=== PATIENT | male | born 1955 | race American Indian/Alaskan Native ===

== ENCOUNTER 2016-11-04 18:39 | Observation (INO) | payer SELFPAY ==
--- NOTE | 2016-11-04 19:47 | C.PDOC ---
History Of Present Illness Patient is a 61 y/o male brought to the ER via BLS for acute alcohol intoxication. Otherwise, patient denies any trauma, injury, or any physical complaints at this time. Time Seen by Provider: 11/04/16 19:47 Chief Complaint (Nursing): Substance Abuse History Per: Patient History/Exam Limitations: intoxication Onset/Duration Of Symptoms: Gradual Current Symptoms Are (Timing): Still Present Suicide/Self Injury Attempted (Context): None Modifying Factor(s): Alcohol Severity: None Pain Scale Rating Of: 0 Involuntary Hold By: None Recent travel outside of the [place]: No Additional History Per: Patient Past Medical History Reviewed: Historical Data, Nursing Documentation, Vital Signs Vital Signs: Last Vital Signs Temp 98.6 F 11/05/16 06:17 Pulse 91 H 11/05/16 06:17 Resp 20 11/05/16 06:17 BP 135/68 11/05/16 06:17 Pulse Ox 98 11/06/16 00:30 - Medical History PMH: Denies: Diabetes, Hepatitis, HIV, HTN, Seizures, Sexually Transmitted Disease - [facility] Procedures ALCOHOL DETOXIFICATION (07/29/13) Family History: States: No Known Family Hx - Social History Hx Tobacco Use: No Hx Alcohol Use: Yes Hx Substance Use: No - Immunization History Hx Tetanus Toxoid Vaccination: No Hx Influenza Vaccination: No Hx Pneumococcal Vaccination: No Review Of Systems Constitutional: Negative for: Fever, Chills Cardiovascular: Negative for: Chest Pain, Palpitations Respiratory: Negative for: Shortness of Breath Gastrointestinal: Negative for: Nausea, Vomiting, Abdominal Pain Psych: Negative for: Suicidal ideation Physical Exam - Physical Exam Appears: Non-toxic, No Acute Distress, Other (EtOH on breath) Skin: Warm, Dry Head: Atraumatic, Normacephalic Eye(s): bilateral: EOMI Neck: Supple Chest: Symmetrical Cardiovascular: Rhythm Regular Respiratory: No Rales, No Rhonchi, No Wheezing Gastrointestinal/Abdominal: Soft, No Tenderness Extremity: Normal ROM Neurological/Psych: Oriented x3, Normal Speech ED Course And Treatment - Laboratory Results Result Diagrams: 11/04/16 20:36 11/04/16 20:36 O2 Sat by Pulse Oximetry: 98 (on RA) Pulse Ox Interpretation: Normal Progress Note: On reassessment, patient is resting comfortably in bed, with no acute distress. Denies any physical complaints. Reevaluation Time: :23 Reassessment Condition: Improved ED OBSERVATION Discharge: Yes Date of observation admission: 11/04/16 Time of observation admission: 19:48 - Observation admission statement Patient is being placed in observation because:: acute alcohol intoxication - Goals of Observation Goals of observation are:: sobriety - Progress Note Progress Note: 11/04/16 19:48 vitals stable,no complaints 11/04/16 21:49 vitals stable 11/04/16 23:49 no complaints 11/05/16 01:46 vitals stable 11/05/16 03:50 arousable, no complaints Disposition Counseled Patient/Family Regarding: Studies Performed, Diagnosis, Need For Followup - Disposition Disposition: HOME/ ROUTINE Disposition Time: 19:47 Condition: FAIR - Clinical Impression Clinical Impression: Alcohol intoxication - Scribe Statement The provider has reviewed the documentation as recorded by the Mya Seals Provider Attestation: All medical record entries made by the Mya were at my direction and personally dictated by me. I have reviewed the chart and agree that the record accurately reflects my personal performance of the history, physical exam, medical decision making, and the department course for this patient. I have also personally directed, reviewed, and agree with the discharge instructions and disposition. Decision To Admit - . Patient Diagnosis: Alcohol intoxication
[2016-11-04 20:41] LABS: BASO # 0.1 K/uL (0.0-0.2); BASO % 1.6 % (0.0-2.0); EOS # 0.3 K/uL (0.0-0.7); EOS % 6.1 % (0.0-4.0); HEMATOCRIT 38.5 % (35.0-51.0); LYMPH # 1.5 K/uL (1.0-4.3); LYMPH % 30.7 % (20.0-40.0); MEAN CELL VOLUME 90.2 fL (80.0-94.0); MEAN CORPUSCULAR HEMOGLOBIN 30.6 pg (27.0-31.0); MEAN CORPUSCULAR HGB CONC 33.9 g/dL (33.0-37.0); MEAN PLATELET VOLUME 8.5 fL (7.2-11.7); MONO # 0.6 K/uL (0.0-0.8); RED CELL DISTRIBUTION WIDTH 13.5 % (11.5-14.5)
[2016-11-04 20:45] LABS: URINE BILIRUBIN NEGATIVE (NEGATIVE); URINE BLOOD NEGATIVE (NEGATIVE); URINE COLOR Colorless (YELLOW); URINE GLUCOSE (UA) NORMAL (Normal); URINE KETONE NEGATIVE (NEGATIVE); URINE LEUKOCYTE ESTERASE NEG Leu/uL (Negative); URINE PROTEIN NEGATIVE (NEGATIVE); URINE UROBILINOGEN NORMAL mg/dL (0.2-1.0)
[2016-11-04 20:50] LABS: CHLORIDE 100 mmol/L (98-107)
[2016-11-04 20:51] LABS: POTASSIUM 5.6 mmol/L (3.6-5.2); SODIUM 134 mmol/L (132-148)
[2016-11-04 20:53] LABS: ALB/GLOB RATIO 1.1 (1.0-2.1); ALKALINE PHOSPHATASE 62 U/L (38-126); AST/SGOT 124 U/L (17-59); BILIRUBIN,TOTAL 0.9 mg/dL (0.2-1.3); BLOOD UREA NITROGEN 12 mg/dL (9-20); CARBON DIOXIDE 21 mmol/L (22-30); GFR AFRICAN-AMERICAN > 60; TOTAL PROTEIN 8.1 g/dL (6.3-8.3)
[2016-11-04 20:54] LABS: ALT/SGPT 61 U/L (21-72); CALCIUM 8.4 mg/dl (8.6-10.4); GLUCOSE,RANDOM 85 mg/dL (75-110)
[2016-11-04 21:05] LABS: ALCOHOL SERUM 329 mg/dl (0-10)
[2016-11-05 00:08] VITALS: RESP 20
[2016-11-05] MEDS ORDERED: Sodium Chloride 0.9% 1,000 ML IV ONE (00:34)
[2016-11-05 06:17] VITALS: BP 135/68; PULSE 91; TEMP 98.6
[2016-11-06 00:30] VITALS: O2SAT 98
== END 2016-11-05 05:24 | disposition home or self-care (01) ==
LOC: C.ER 18:39 → C.9OBSV 19:47
PROVIDERS: ADMIT Emergency Medicine; ATTEND Emergency Medicine
DX: F10.129 Alcohol abuse with intoxication, unspecified (principal)
CPT/HCPCS: 80053; 81001; 82948; 85025; 96360; 99285; G0378; G0480

== ENCOUNTER 2016-11-29 00:41 | Observation (INO) | payer SELFPAY ==
--- NOTE | 2016-11-29 00:57 | C.PDOC ---
Time Seen by Provider: 11/29/16 00:57 Chief Complaint (Nursing): Male Genitourinary Past Medical History Reviewed: Historical Data, Nursing Documentation, Vital Signs Vital Signs: Last Vital Signs Temp 97.6 F 11/29/16 00:51 Pulse 85 11/29/16 00:51 Resp 20 11/29/16 00:51 BP 129/81 11/29/16 00:51 Pulse Ox 98 11/29/16 00:57 - Medical History PMH: Denies: Diabetes, Hepatitis, HIV, HTN, Seizures, Sexually Transmitted Disease - [facility] Procedures ALCOHOL DETOXIFICATION (07/29/13) Family History: States: No Known Family Hx - Social History Hx Tobacco Use: No Hx Alcohol Use: Yes Hx Substance Use: No - Immunization History Hx Tetanus Toxoid Vaccination: No Hx Influenza Vaccination: No Hx Pneumococcal Vaccination: No ED Course And Treatment O2 Sat by Pulse Oximetry: 98 Disposition Counseled Patient/Family Regarding: Studies Performed, Diagnosis - Disposition Disposition Time: 00:57
[2016-11-29] MEDS ORDERED: Sodium Chloride 0.9% 1,000 ML IV ONE (00:58)
--- NOTE | 2016-11-29 01:04 | C.PDOC ---
History Of Present Illness pt presents with right flank pain, some dysuria worsening since am. no f/c/n/c. Dull aching discomfort. Pt has also been drinking heavily, as usual Time Seen by Provider: 11/29/16 00:57 Chief Complaint (Nursing): Male Genitourinary History Per: Patient History/Exam Limitations: no limitations Onset/Duration Of Symptoms: Days Current Symptoms Are (Timing): Still Present Context: Other Severity: Moderate Pain Scale Rating Of: 4 Location Of Pain/Discomfort: Other (r flank, back pain) Radiation Of Pain To:: Back Quality Of Discomfort: Dull, Aching Associated Symptoms: denies: Fever, Chills, Nausea Exacerbating Factors: None Alleviating Factors: None Last Bowel Movement: Yesterday Recent travel outside of the [place]: No Additional History Per: Patient Past Medical History Reviewed: Historical Data, Nursing Documentation, Vital Signs Vital Signs: Last Vital Signs Temp 98.0 F 11/29/16 06:18 Pulse 78 11/29/16 06:18 Resp 18 11/29/16 06:18 BP 150/82 11/29/16 06:18 Pulse Ox 98 11/29/16 06:55 - Medical History PMH: Denies: Diabetes, Hepatitis, HIV, HTN, Seizures, Sexually Transmitted Disease - [facility] Procedures ALCOHOL DETOXIFICATION (07/29/13) Family History: States: No Known Family Hx - Social History Hx Tobacco Use: No Hx Alcohol Use: Yes Hx Substance Use: No - Immunization History Hx Tetanus Toxoid Vaccination: No Hx Influenza Vaccination: No Hx Pneumococcal Vaccination: No Review Of Systems Constitutional: Negative for: Fever, Chills Eyes: Negative for: Vision Change ENT: Negative for: Throat Pain Cardiovascular: Negative for: Chest Pain Respiratory: Negative for: Shortness of Breath Gastrointestinal: Positive for: Abdominal Pain. Negative for: Nausea, Vomiting Genitourinary: Negative for: Dysuria Musculoskeletal: Positive for: Back Pain Skin: Negative for: Rash, Lesions Neurological: Negative for: Weakness Psych: Negative for: Anxiety Physical Exam - Physical Exam Appears: Non-toxic Skin: Warm, Dry Oral Mucosa: Moist Teeth: Other (poor dentition) Neck: Trachea Midline, Supple Chest: Symmetrical Cardiovascular: Rhythm Regular Respiratory: No Rales, No Rhonchi, No Wheezing Gastrointestinal/Abdominal: Bowel Sounds (tympanic to percussion), Soft, Tenderness (r flank), No Distention, No Guarding, No Rebound Back: CVA Tenderness (r) Male Genital: No Testicular Tenderness, No Inguinal Tenderness, No Inguinal Swelling Extremity: Normal ROM Extremity: Bilateral: Atraumatic Neurological/Psych: Oriented x3, Normal Speech, Normal Cognition Gait: Steady ED Course And Treatment - Laboratory Results Result Diagrams: 11/29/16 01:14 11/29/16 01:14 O2 Sat by Pulse Oximetry: 98 Pulse Ox Interpretation: Normal Progress Note: blood work , ivf, toradol, ct scan ED OBSERVATION Discharge: Yes Date of observation admission: 11/29/16 Time of observation admission: 03:25 - Observation admission statement Patient is being placed in observation because:: acute alcohol intoxication - Goals of Observation Goals of observation are:: sobriety - Progress Note Progress Note: 11/29/16 03:25 vitals stable 11/29/16 05:29 no complaints Disposition Counseled Patient/Family Regarding: Studies Performed, Diagnosis, Need For Followup - Disposition Disposition: HOME/ ROUTINE Disposition Time: 01:01 Condition: FAIR - Clinical Impression Clinical Impression: Alcohol intoxication
[2016-11-29 01:17] LABS: BASO # 0.1 K/uL (0.0-0.2); BASO % 1.7 % (0.0-2.0); EOS # 0.3 K/uL (0.0-0.7); EOS % 6.6 % (0.0-4.0); HEMATOCRIT 43.5 % (35.0-51.0); LYMPH # 1.8 K/uL (1.0-4.3); LYMPH % 36.1 % (20.0-40.0); MEAN CELL VOLUME 90.5 fL (80.0-94.0); MEAN CORPUSCULAR HEMOGLOBIN 30.5 pg (27.0-31.0); MEAN CORPUSCULAR HGB CONC 33.7 g/dL (33.0-37.0); MEAN PLATELET VOLUME 8.3 fL (7.2-11.7); MONO # 0.3 K/uL (0.0-0.8); RED CELL DISTRIBUTION WIDTH 13.4 % (11.5-14.5); WHITE BLOOD COUNT 4.9 K/uL (4.8-10.8)
[2016-11-29] MEDS ORDERED: Sodium Chloride 0.9% 1,000 ML ONE (01:17)
[2016-11-29 01:22] LABS: URINE BILIRUBIN NEGATIVE (NEGATIVE); URINE BLOOD 1+ (NEGATIVE); URINE COLOR Straw (YELLOW); URINE GLUCOSE (UA) NORMAL (Normal); URINE KETONE NEGATIVE (NEGATIVE); URINE LEUKOCYTE ESTERASE NEG Leu/uL (Negative); URINE PROTEIN NEGATIVE (NEGATIVE); URINE UROBILINOGEN NORMAL mg/dL (0.2-1.0); WBC URINE < 1 /hpf (0-5)
[2016-11-29 01:28] LABS: CHLORIDE 105 mmol/L (98-107); INR 0.9; SODIUM 143 mmol/L (132-148)
[2016-11-29 01:29] LABS: GFR AFRICAN-AMERICAN > 60
[2016-11-29 01:30] LABS: ALB/GLOB RATIO 1.3 (1.0-2.1); ALKALINE PHOSPHATASE 78 U/L (38-126); ALT/SGPT 55 U/L (21-72); AST/SGOT 108 U/L (17-59); BILIRUBIN,TOTAL 0.7 mg/dL (0.2-1.3); BLOOD UREA NITROGEN 9 mg/dL (9-20); CALCIUM 8.5 mg/dl (8.6-10.4); CARBON DIOXIDE 27 mmol/L (22-30); GLUCOSE,RANDOM 86 mg/dL (75-110)
[2016-11-29 01:43] LABS: ALCOHOL SERUM 340 mg/dl (0-10)
[2016-11-29 06:19] VITALS: BP 150/82; PULSE 78; RESP 18; TEMP 98
[2016-11-29 06:55] VITALS: O2SAT 98
== END 2016-11-29 06:56 | disposition home or self-care (01) ==
LOC: C.ER 00:41 → C.9OBSV 03:24
PROVIDERS: ADMIT Emergency Medicine; ATTEND Emergency Medicine
DX: F10.120 Alcohol abuse with intoxication, uncomplicated (principal); Y90.8 Blood alcohol level of 240 mg/100 ml or more
CPT/HCPCS: 80053; 81001; 83690; 85025; 85610; 85730; 96361; 96374; 96375; 99284; G0378; G0480; J1885; J7040

== ENCOUNTER 2016-12-28 20:45 | Emergency (ER) | payer SELFPAY ==
[2016-12-28 20:51] VITALS: TEMP 98.8; O2SAT 97
--- NOTE | 2016-12-28 20:56 | C.PDOC ---
History Of Present Illness A 61 y/o M brought in by EMS for ETOH intoxication and wanting pain meds for his chronic back pain. Denies fever, chills, N/V/D, weakness, numbness, suicidal or homicidal ideation, or any other complaints. Time Seen by Provider: 12/28/16 20:55 Chief Complaint (Nursing): Back Pain History Per: Patient History/Exam Limitations: no limitations Onset/Duration Of Symptoms: Hrs Current Symptoms Are (Timing): Still Present Quality Of Discomfort: "Pain" Severity: Mild Previous Symptoms: Back Pain, Chronic Pain Associated Symptoms: denies: New Weakness, New Numbness Recent travel outside of the [place]: No Additional History Per: Patient Past Medical History Reviewed: Historical Data, Nursing Documentation, Vital Signs Vital Signs: Last Vital Signs Temp 98.8 F 12/28/16 21:20 Pulse 88 12/28/16 21:20 Resp 16 12/28/16 21:20 BP 136/84 12/28/16 21:20 Pulse Ox 97 12/28/16 23:01 - Medical History PMH: Denies: Diabetes, Hepatitis, HIV, HTN, Seizures, Sexually Transmitted Disease - [facility] Procedures ALCOHOL DETOXIFICATION (07/29/13) Family History: States: Unknown Family Hx - Social History Hx Tobacco Use: No Hx Alcohol Use: Yes Hx Substance Use: No - Immunization History Hx Tetanus Toxoid Vaccination: No Hx Influenza Vaccination: No Hx Pneumococcal Vaccination: No Review Of Systems Except As Marked, All Systems Reviewed And Found Negative. Constitutional: Positive for: Other (ETOH intoxication). Negative for: Fever, Chills Gastrointestinal: Negative for: Nausea, Vomiting, Diarrhea Musculoskeletal: Positive for: Back Pain (Lower ) Neurological: Negative for: Weakness, Numbness Psych: Negative for: Suicidal ideation, Other (Homicidal ideation) Physical Exam - Physical Exam Appears: Non-toxic, No Acute Distress, Other (ETOH intoxication, (+) AOB) Skin: Warm, Dry Head: Atraumatic, Normacephalic Eye(s): bilateral: Normal Inspection Cardiovascular: Rhythm Regular Respiratory: Normal Breath Sounds, No Rales, No Rhonchi, No Wheezing Back: Normal Inspection, No CVA Tenderness, No Vertebral Tenderness, No Paraspinal Tenderness Neurological/Psych: Oriented x3, Other (No focal deficit) Gait: With Assistance (Cane) ED Course And Treatment O2 Sat by Pulse Oximetry: 97 (RA) Pulse Ox Interpretation: Normal Medical Decision Making Medical Decision Making: Impression: A 61 y/o M brought in by EMS for ETOH intoxication and wanting pain meds for his chronic back pain. homeless, alcoholic, malingering, no new back issues. Pt denies pain meds Disposition Doctor Will See Patient In The: Office Counseled Patient/Family Regarding: Studies Performed, Diagnosis - Disposition Referrals: Alcoholics Anonymous [Outside] [facility] [Outside] [facility] [Outside] Non [facility] Provider, [Primary Care Provider] - Disposition: HOME/ ROUTINE Disposition Time: 20:55 Condition: GOOD Additional Instructions: tylenol or Motrin for your chronic back pain issues Follow-up in our outpatient clinic as needed. Seek help to stop alcohol abuse. Instructions: Abuse of Alcohol (ED), Chronic Back Pain (ED) - Clinical Impression Clinical Impression: Low back pain, Alcohol abuse - Scribe Statement The provider has reviewed the documentation as recorded by the Scribe Homar parrish All medical record entries made by the Johnibbarbara were at my direction and personally dictated by me. I have reviewed the chart and agree that the record accurately reflects my personal performance of the history, physical exam, medical decision making, and the department course for this patient. I have also personally directed, reviewed, and agree with the discharge instructions and disposition.
[2016-12-28 21:21] VITALS: BP 136/84; PULSE 88; RESP 16
== END 2016-12-28 21:22 | disposition home or self-care (01) ==
LOC: SUPCPDRO 20:45 → C.ER 20:45
DX: M54.5 Low back pain (principal); F10.10 Alcohol abuse, uncomplicated; Y90.9 Presence of alcohol in blood, level not specified

== ENCOUNTER 2017-04-23 14:21 | Emergency (ER) | payer SELFPAY ==
[2017-04-23 14:57] VITALS: RESP 18
--- NOTE | 2017-04-23 15:12 | C.PDOC ---
History Of Present Illness 61 year old male, with history of alcohol abuse, brought to ED via EMS for acute alcohol intoxication. Pt admits drinking alcohol today. Otherwise, denies SI, HI, or physical complaints at this time. Time Seen by Provider: 04/23/17 14:48 Chief Complaint (Nursing): Substance Abuse History Per: Patient, EMS History/Exam Limitations: intoxication Current Symptoms Are (Timing): Still Present Suicide/Self Injury Attempted (Context): None Modifying Factor(s): Alcohol Severity: Mild Associated Symptoms: denies: Suicidal Thoughts, Suicidal Plan Involuntary Hold By: None Additional History Per: EMS Past Medical History Reviewed: Historical Data, Nursing Documentation, Vital Signs Vital Signs: Last Vital Signs Temp 98.1 F 04/23/17 18:30 Pulse 78 04/23/17 18:30 Resp 18 04/23/17 18:30 BP 106/70 04/23/17 18:30 Pulse Ox 100 04/23/17 18:30 - [facility] Procedures ALCOHOL DETOXIFICATION (07/29/13) Family History: States: No Known Family Hx - Social History Hx Tobacco Use: No Hx Alcohol Use: Yes Hx Substance Use: No - Immunization History Hx Tetanus Toxoid Vaccination: No Hx Influenza Vaccination: No Hx Pneumococcal Vaccination: No Review Of Systems Except As Marked, All Systems Reviewed And Found Negative. Constitutional: Negative for: Fever, Chills Cardiovascular: Negative for: Chest Pain, Palpitations Respiratory: Negative for: Shortness of Breath Gastrointestinal: Negative for: Nausea, Vomiting, Abdominal Pain Neurological: Negative for: Headache, Dizziness Psych: Positive for: Other (alcohol intoxication). Negative for: Suicidal ideation Physical Exam - Physical Exam Appears: Well, Non-toxic, No Acute Distress, Other (appears intoxicated) Skin: Normal Color, Warm, Dry, No Rash Head: Atraumatic, Normacephalic, No Swelling, No Abrasion, No Laceration Eye(s): bilateral: Normal Inspection Oral Mucosa: Moist, Other (EtOH on breath) Neck: Normal ROM, No Midline Cervical Tenderness, No Paracervical Tenderness, No Step Off Deformity, Supple Cardiovascular: Rhythm Regular Respiratory: Normal Breath Sounds, No Rales, No Rhonchi, No Wheezing Gastrointestinal/Abdominal: Normal Exam, Bowel Sounds, Soft, No Tenderness Extremity: Normal ROM, No Deformity Extremity: Bilateral: Atraumatic, Normal ROM Neurological/Psych: Other (awake, alert, intoxicated, moving all 4 extremities spontaneously) ED Course And Treatment O2 Sat by Pulse Oximetry: 99 (RA) Pulse Ox Interpretation: Normal Progress Note: Patient pending sobriety. Reevaluation Time: 18:30 Reassessment Condition: Improved (Patient is currently AAOx3 and ambulating normally in ED. He is clinically sober at this time, will discharge.) Disposition Counseled Patient/Family Regarding: Diagnosis, Need For Followup - Disposition Referrals: [facility] [Outside] Disposition: HOME/ ROUTINE Disposition Time: 18:30 Condition: STABLE Instructions: Alcohol Intoxication (ED) Forms: [facility] (Irish), General Discharge Instructions Print Language: HONG KONGER - Clinical Impression Clinical Impression: Alcohol intoxication - Scribe Statement The provider has reviewed the documentation as recorded by the Scribe Jane Seals All medical record entries made by the Scribe were at my direction and personally dictated by me. I have reviewed the chart and agree that the record accurately reflects my personal performance of the history, physical exam, medical decision making, and the department course for this patient. I have also personally directed, reviewed, and agree with the discharge instructions and disposition.
[2017-04-23 18:31] VITALS: BP 106/70; PULSE 78; TEMP 98.1
[2017-04-24 18:10] VITALS: O2SAT 99
== END 2017-04-23 18:30 | disposition home or self-care (01) ==
LOC: C.ER 14:21
DX: F10.129 Alcohol abuse with intoxication, unspecified (principal)

== ENCOUNTER 2017-06-01 01:06 | Emergency (ER) | payer SELFPAY ==
--- NOTE | 2017-06-01 01:34 | C.PDOC ---
History Of Present Illness The patient is brought to the ED by EMS for evaluation after he was found publicly intoxicated prior to arrival. Patient was found sitting on the street and requested to come to this ED for evaluation. He admits to drinking earlier today and has no physical complaints at this time. Time Seen by Provider: 06/01/17 01:34 Chief Complaint (Nursing): Substance Abuse History Per: Patient, EMS History/Exam Limitations: intoxication Onset/Duration Of Symptoms: Unknown Current Symptoms Are (Timing): Still Present Suicide/Self Injury Attempted (Context): None Modifying Factor(s): Alcohol Severity: None Pain Scale Rating Of: 0 Associated Symptoms: denies: Suicidal Thoughts, Suicidal Plan Involuntary Hold By: None Recent travel outside of the [place]: No Additional History Per: Patient Past Medical History Reviewed: Historical Data, Nursing Documentation, Vital Signs Vital Signs: Last Vital Signs Temp 97.8 F 06/01/17 04:28 Pulse 69 06/01/17 04:28 Resp 17 06/01/17 04:28 BP 141/76 06/01/17 04:28 Pulse Ox 98 06/01/17 04:28 - Medical History PMH: No Chronic Diseases Denies: Diabetes, Hepatitis, HIV, HTN, Seizures, Sexually Transmitted Disease Surgical History: No Surg Hx - [facility] Procedures ALCOHOL DETOXIFICATION (07/29/13) Family History: States: Unknown Family Hx - Social History Hx Tobacco Use: No Hx Alcohol Use: Yes Hx Substance Use: No - Immunization History Hx Tetanus Toxoid Vaccination: No Hx Influenza Vaccination: No Hx Pneumococcal Vaccination: No Review Of Systems Constitutional: Negative for: Fever, Chills Cardiovascular: Negative for: Chest Pain, Palpitations Respiratory: Negative for: Cough, Shortness of Breath Gastrointestinal: Negative for: Nausea, Vomiting, Abdominal Pain Genitourinary: Negative for: Dysuria, Hematuria Skin: Negative for: Rash, Lesions, Jaundice, Bruising Psych: Positive for: Other (EtOH intoxication ). Negative for: Suicidal ideation Physical Exam - Physical Exam Appears: No Acute Distress, Other (visibly intoxicated) Skin: Normal Color, Warm, Dry Head: Normacephalic Oral Mucosa: Moist, Other (alcohol on breath ) Neck: Supple Chest: Symmetrical, No Deformity, No Tenderness Cardiovascular: Rhythm Regular, No Murmur Respiratory: No Rales, No Rhonchi, No Wheezing Extremity: Normal ROM Neurological/Psych: Other (arousable to touch and verbal stimuli ) Gait: Unsteady ED Course And Treatment O2 Sat by Pulse Oximetry: 100 (on RA) Pulse Ox Interpretation: Normal Reevaluation Time: 05:30 Reassessment Condition: Improved Disposition Counseled Patient/Family Regarding: Studies Performed, Diagnosis, Need For Followup - Disposition Referrals: [facility] [Outside] Disposition: HOME/ ROUTINE Disposition Time: 01:34 Condition: FAIR Instructions: Alcohol Intoxication (DC) Forms: [employer] (Vietnamese) - Clinical Impression Clinical Impression: Alcohol abuse, Alcohol intoxication - Scribe Statement The provider has reviewed the documentation as recorded by the Scribe (Mica Seals) Provider Attestation: All medical record entries made by the Scribe were at my direction and personally dictated by me. I have reviewed the chart and agree that the record accurately reflects my personal performance of the history, physical exam, medical decision making, and the department course for this patient. I have also personally directed, reviewed, and agree with the discharge instructions and disposition.
[2017-06-01 05:30] VITALS: O2SAT 100
[2017-06-01 05:46] VITALS: BP 139/81; PULSE 77; RESP 20; TEMP 98.1
== END 2017-06-01 05:47 | disposition home or self-care (01) ==
LOC: SUPCPDRO 01:06 → C.ER 01:06
DX: F10.129 Alcohol abuse with intoxication, unspecified (principal); Y90.9 Presence of alcohol in blood, level not specified

== ENCOUNTER 2017-06-03 16:49 | Emergency (ER) | payer SELFPAY ==
--- NOTE | 2017-06-03 19:31 | C.PDOC ---
History Of Present Illness Pt was BIBEMS due to public alcohol intoxication. Time Seen by Provider: 06/03/17 17:08 Chief Complaint (Nursing): Substance Abuse History Per: Patient, EMS History/Exam Limitations: intoxication Onset/Duration Of Symptoms: Unknown Current Symptoms Are (Timing): Still Present Suicide/Self Injury Attempted (Context): None Modifying Factor(s): Alcohol Severity: Moderate Associated Symptoms: denies: Suicidal Thoughts, Suicidal Plan Additional History Per: Prior Records Past Medical History Reviewed: Historical Data, Nursing Documentation, Vital Signs Vital Signs: Last Vital Signs Temp 98.4 F 06/03/17 22:18 Pulse 86 06/03/17 22:18 Resp 16 06/03/17 22:18 BP 114/79 06/03/17 22:18 Pulse Ox 97 06/03/17 22:18 - Medical History Other PMH: Alcohol abuse - [facility] Procedures ALCOHOL DETOXIFICATION (07/29/13) Family History: States: Unknown Family Hx - Social History Hx Tobacco Use: No Hx Alcohol Use: Yes Hx Substance Use: No - Immunization History Hx Tetanus Toxoid Vaccination: No Hx Influenza Vaccination: No Hx Pneumococcal Vaccination: No Review Of Systems Review Of Systems: ROS cannot be obtained secondary to pt's inabilty to answer questions. Physical Exam - Physical Exam Appears: No Acute Distress, Other (AOB, intoxicated) Skin: Normal Color, Warm, Dry Head: Atraumatic Eye(s): bilateral: PERRL Neck: Normal ROM, No Midline Cervical Tenderness, No Step Off Deformity, Supple Cardiovascular: Rhythm Regular Respiratory: Normal Breath Sounds, No Accessory Muscle Use Gastrointestinal/Abdominal: Soft Extremity: Normal ROM, No Deformity Neurological/Psych: Slow To Respond With Command, Other (Moving all extremities) Gait: Unable To Assess ED Course And Treatment O2 Sat by Pulse Oximetry: 97 Pulse Ox Interpretation: Normal Disposition - Disposition Disposition Time: 00:36 Condition: STABLE - Clinical Impression Clinical Impression: Alcohol abuse Physician Patient Turnover Patient Signed Over To: Saritha Sandoval Handoff Comments: to reassess/dispo pt once sober in AM.
[2017-06-03 22:19] VITALS: TEMP 98.4
[2017-06-04 01:56] VITALS: BP 111/76; PULSE 118; RESP 21; O2SAT 96
== END 2017-06-04 06:50 | disposition home or self-care (01) ==
LOC: C.ER 16:49
DX: F10.10 Alcohol abuse, uncomplicated (principal); Y90.9 Presence of alcohol in blood, level not specified

== ENCOUNTER 2017-06-10 22:26 | Emergency (ER) | payer SELFPAY ==
--- NOTE | 2017-06-10 22:38 | C.PDOC ---
History Of Present Illness <Aleks Ott - Last Filed: 06/11/17 06:32> <Lori Bernal - Last Filed: 06/12/17 17:45> 61yo male, brought to ED by EMS for evaluation after he fell on the street. Patient disheveled, confused and unable to provide history of present illness. ( Aleks Ott) - HPI History Per: EMS History/Exam Limitations: intoxication <Aleks Ott - Last Filed: 06/11/17 06:32> <Lori Bernal - Last Filed: 06/12/17 17:45> - HPI Time Seen by Provider: 06/10/17 22:29 Chief Complaint (Nursing): Trauma Past Medical History Reviewed: Historical Data, Nursing Documentation, Vital Signs - Medical History PMH: Denies: HIV, HTN, Seizures, Sexually Transmitted Disease Family History: States: Unknown Family Hx - Social History Hx Tobacco Use: No Hx Alcohol Use: Yes Hx Substance Use: No - Immunization History Hx Tetanus Toxoid Vaccination: No Hx Influenza Vaccination: No Hx Pneumococcal Vaccination: No <Aleks Ott - Last Filed: 06/11/17 06:32> Vital Signs: Last Vital Signs Temp 98.1 F 06/10/17 22:51 Pulse 105 H 06/11/17 13:55 Resp 18 06/11/17 13:55 BP 150/90 06/11/17 13:55 Pulse Ox 97 06/11/17 13:55 - [facility] Procedures ALCOHOL DETOXIFICATION (07/29/13) Review Of Systems Psych: Positive for: Other (intoxicated, disheveled) <Aleks Ott - Last Filed: 06/11/17 06:32> Physical Exam - Physical Exam Head: Abrasion (left supraorbital ridge with superficial abrasion, tenderness and swelling) Nose: Tenderness (nasal bridge with superficial abrasion, tender to touch. swelling noted as well.) Oral Mucosa: Moist, Other (alcohol on breath) Neck: Supple Gait: Unsteady <Aleks Ott - Last Filed: 06/11/17 06:32> ED Course And Treatment - Laboratory Results Result Diagrams: 06/10/17 22:57 06/10/17 22:57 Reevaluation Time: 05:45 (clinically intoxicated) Reassessment Condition: Unchanged <Aleks Ott - Last Filed: 06/11/17 06:32> - Laboratory Results Result Diagrams: 06/10/17 22:57 06/10/17 22:57 <Lori Bernal - Last Filed: 06/12/17 17:45> Medical Decision Making <Aleks Ott - Last Filed: 06/11/17 06:32> <Lori Bernal - Last Filed: 06/12/17 17:45> Medical Decision Making: Time: 8 CT Head FINDINGS: Brain: There is dilatation of sulci gyri and ventricles. There is no midline shift. There is decreased attenuation in periventricular white matter. There are no focal masses. There are no focal hemorrhages. There is an age-indeterminate lacunar infarct in the left basal ganglia. De-white differentiation is visualized. Ventricles: See above Bones: Cranial vault is intact. Soft tissues: There is left frontal scalp swelling. There are multiple cutaneous calcifications. Sinuses: There is mucoperiosteal thickening in the ethmoid and left maxillary sinuses. Ears and mastoids: Middle ears and mastoids are unremarkable. Orbits: There are no acute orbital abnormalities. IMPRESSION: Small left frontal scalp hematoma, no acute intracranial hemorrhage Time: 0632 Patient to be signed out to Dr. Bernal pending clinical sobriety and disposition. (Aleks Ott) Disposition <Aleks Ott - Last Filed: 06/11/17 06:32> Counseled Patient/Family Regarding: Studies Performed, Diagnosis, Need For Followup - Disposition Disposition Time: 14:00 <Lori Bernal - Last Filed: 06/12/17 17:45> - Disposition Referrals: [facility] [Outside] Disposition: HOME/ ROUTINE Condition: STABLE Additional Instructions: FOLLOW UP WITH YOUR DOCTOR IN 1-2 DAYS RETURN TO ER IF YOU HAVE ANY CONCERNING SYMPTOMS Instructions: Alcohol Intoxication (ED) Forms: [employer] (British) Print Language: KISWAHILI - Clinical Impression Clinical Impression: Alcohol intoxication, Head injury Critical Care Time - Scribe Statement The provider has reviewed the documentation as recorded by the Scribe <Aleks Ott - Last Filed: 06/11/17 06:32> <Lori Bernal - Last Filed: 06/12/17 17:45> - Scribe Statement Gina Lamar (Aleks Ott) Provider Attestation: All medical record entries made by the Scribe were at my direction and personally dictated by me. I have reviewed the chart and agree that the record accurately reflects my personal performance of the history, physical exam, medical decision making, and the department course for this patient. I have also personally directed, reviewed, and agree with the discharge instructions and disposition. (Aleks Ott) Addendum <Aleks Ott - Last Filed: 06/11/17 06:32> <Lori Bernal - Last Filed: 06/12/17 17:45> Addendum: 06/11/17 9:00 Patient sleeping on stretcher comfortably, arousable to verbal stimuli. Pending sobriety. 06/11/17 13:56 Patient currently AAOx3, ambulating normally in the ED. Patient is clinically sober, will discharge. (Lori Bernal)
[2017-06-10 22:52] VITALS: RESP 18; TEMP 98.1
[2017-06-10 23:00] LABS: BASO # 0.1 K/uL (0.0-0.2); BASO % 1.3 % (0.0-2.0); EOS # 0.4 K/uL (0.0-0.7); HEMATOCRIT 37.8 % (35.0-51.0); LYMPH # 2.1 K/uL (1.0-4.3); LYMPH % 37.6 % (20.0-40.0); MEAN CORPUSCULAR HEMOGLOBIN 31.6 pg (27.0-31.0); MEAN PLATELET VOLUME 8.9 fL (7.2-11.7); MONO # 0.6 K/uL (0.0-0.8); MONO % 11.2 % (0.0-10.0); RED CELL DISTRIBUTION WIDTH 13.1 % (11.5-14.5); WHITE BLOOD COUNT 5.5 K/uL (4.8-10.8)
[2017-06-10 23:02] LABS: MEAN CELL VOLUME 92.8 fL (80.0-94.0)
[2017-06-10 23:12] LABS: ALB/GLOB RATIO 1.3 (1.0-2.1); ALKALINE PHOSPHATASE 85 U/L (38-126); ALT/SGPT 59 U/L (21-72); AST/SGOT 81 U/L (17-59); BILIRUBIN,TOTAL 0.4 mg/dL (0.2-1.3); BLOOD UREA NITROGEN 12 mg/dL (9-20); CALCIUM 8.2 mg/dl (8.6-10.4); CARBON DIOXIDE 25 mmol/L (22-30); CHLORIDE 108 mmol/L (98-107); GFR AFRICAN-AMERICAN > 60; GLUCOSE,RANDOM 97 mg/dL (75-110); POTASSIUM 3.7 mmol/L (3.6-5.2); SODIUM 142 mmol/L (132-148); TOTAL PROTEIN 7.3 g/dL (6.3-8.3)
[2017-06-10 23:28] LABS: ALCOHOL SERUM 413 mg/dl (0-10)
--- NOTE | 2017-06-10 23:55 | CT ---
EXAM: CT Head Without Intravenous Contrast EXAM DATE/TIME: 06/10/2017 10:39 PM CLINICAL HISTORY: 61 years old, male; Pain; Headache; Patient HX: 06-13-17; Additional info: Trauma TECHNIQUE: Axial computed tomography images of the head/brain without intravenous contrast. All CT scans at this facility use one or more dose reduction techniques, viz.: automated exposure control; ma/kV adjustment per patient size (including targeted exams where dose is matched to indication; i.e. head); or iterative reconstruction technique. COMPARISON: CT - HEAD W/O CONTRAST 2013-07-28 20:15 FINDINGS: Brain: There is dilatation of sulci gyri and ventricles. There is no midline shift. There is decreased attenuation in periventricular white matter. There are no focal masses. There are no focal hemorrhages. There is an age-indeterminate lacunar infarct in the left basal ganglia. De-white differentiation is visualized. Ventricles: See above Bones: Cranial vault is intact. Soft tissues: There is left frontal scalp swelling. There are multiple cutaneous calcifications. Sinuses: There is mucoperiosteal thickening in the ethmoid and left maxillary sinuses. Ears and mastoids: Middle ears and mastoids are unremarkable. Orbits: There are no acute orbital abnormalities. IMPRESSION: Small left frontal scalp hematoma, no acute intracranial hemorrhage
[2017-06-11 08:52] VITALS: O2SAT 97
[2017-06-11 13:59] VITALS: BP 150/90; PULSE 105
== END 2017-06-11 14:05 | disposition home or self-care (01) ==
LOC: C.ER 22:26
DX: S00.212A Abrasion of left eyelid and periocular area, initial encounter (principal); S00.31XA Abrasion of nose, initial encounter; W18.30XA Fall on same level, unspecified, initial encounter; F10.129 Alcohol abuse with intoxication, unspecified; Y90.8 Blood alcohol level of 240 mg/100 ml or more
CPT/HCPCS: 70450; 80053; 82948; 85025; 99285; G0480

== ENCOUNTER 2017-06-13 22:25 | Emergency (ER) | payer SELFPAY ==
[2017-06-13 22:50] VITALS: PULSE 98; TEMP 98.4; O2SAT 98
--- NOTE | 2017-06-14 | C.PDOC ---
History Of Present Illness Patient is a 61 y/o male who presents to the ED with a complaint of upper back pain for the last 3 days. Patient notes falling approximately 3 days ago, but is unsure if it was related to the pain. Requested sandwich on arrival. No other physical complaints at this time. Time Seen by Provider: 06/13/17 23:01 Chief Complaint (Nursing): Back Pain History Per: Patient History/Exam Limitations: no limitations Onset/Duration Of Symptoms: Days (3 days ago) Current Symptoms Are (Timing): Still Present Recent travel outside of the [place]: No Past Medical History Reviewed: Historical Data, Nursing Documentation, Vital Signs Vital Signs: Last Vital Signs Temp 98.4 F 06/13/17 22:44 Pulse 98 H 06/13/17 22:44 Resp 20 06/14/17 00:12 BP Pulse Ox 98 06/14/17 02:21 - Medical History PMH: No Chronic Diseases Denies: HIV, HTN, Seizures, Sexually Transmitted Disease Surgical History: No Surg Hx - [facility] Procedures ALCOHOL DETOXIFICATION (07/29/13) Family History: States: Unknown Family Hx - Social History Hx Tobacco Use: No Hx Alcohol Use: Yes Hx Substance Use: No - Immunization History Hx Tetanus Toxoid Vaccination: No Hx Influenza Vaccination: No Hx Pneumococcal Vaccination: No Review Of Systems Constitutional: Negative for: Fever, Chills Cardiovascular: Negative for: Chest Pain Musculoskeletal: Positive for: Back Pain (upper back ) Physical Exam - Physical Exam Appears: Well, Non-toxic, Other (poor hygiene ) Skin: Normal Color, Warm, Dry Head: Atraumatic, Normacephalic Oral Mucosa: Moist Back: No CVA Tenderness, No Vertebral Tenderness, Other (positive nontender mass to right upper back) Neurological/Psych: Oriented x3, Normal Speech, Normal Cognition Gait: Steady ED Course And Treatment O2 Sat by Pulse Oximetry: 98 (room air) Pulse Ox Interpretation: Normal Progress Note: Tylenol administered. On re-eval, patient feels okay to go home and is advised to see PMD if symptoms persist. Patient to be discharged. Disposition Counseled Patient/Family Regarding: Diagnosis, Need For Followup, Rx Given - Disposition Referrals: [facility] [Outside] Disposition: HOME/ ROUTINE Disposition Time: 23:57 Condition: STABLE Additional Instructions: Please follwo up in clinic Return to ER if worse Prescriptions: Acetaminophen 650 mg PO Q6 #20 tablet Instructions: Chronic Back Pain (ED) Forms: [facility] (Wolof) - Clinical Impression Clinical Impression: Back pain - Scribe Statement The provider has reviewed the documentation as recorded by the Scribe Dilcia Prescott All medical record entries made by the Scribe were at my direction and personally dictated by me. I have reviewed the chart and agree that the record accurately reflects my personal performance of the history, physical exam, medical decision making, and the department course for this patient. I have also personally directed, reviewed, and agree with the discharge instructions and disposition.
[2017-06-14 00:12] VITALS: RESP 20
== END 2017-06-14 00:12 | disposition home or self-care (01) ==
LOC: C.ER 22:25
DX: M54.9 Dorsalgia, unspecified (principal)

== ENCOUNTER 2017-06-17 22:45 | Emergency (ER) | payer SELFPAY ==
--- NOTE | 2017-06-18 04:38 | C.PDOC ---
History Of Present Illness 61 yo male intoxicated, fell but denies injury although earlier reported left shoulder pain to EMS.Denies drug use. Time Seen by Provider: 06/17/17 23:23 Chief Complaint (Nursing): Substance Abuse Past Medical History Vital Signs: Last Vital Signs Temp 97.9 F 06/18/17 05:07 Pulse 81 06/18/17 05:07 Resp 16 06/18/17 05:07 BP 124/79 06/18/17 05:07 Pulse Ox 100 06/18/17 05:07 - Medical History PMH: Denies: HIV, HTN, Seizures, Sexually Transmitted Disease - [facility] Procedures ALCOHOL DETOXIFICATION (07/29/13) Family History: States: Unknown Family Hx - Social History Hx Tobacco Use: No Hx Alcohol Use: Yes (4 beers) Hx Substance Use: No - Immunization History Hx Tetanus Toxoid Vaccination: No Hx Influenza Vaccination: No Hx Pneumococcal Vaccination: No ED Course And Treatment O2 Sat by Pulse Oximetry: 97 Disposition - Disposition Disposition: HOME/ ROUTINE Disposition Time: 06:45 Condition: IMPROVED Instructions: Alcohol Intoxication (ED) Forms: [facility] (Azeri) - Clinical Impression Clinical Impression: Alcoholism, Contusion
[2017-06-18 05:08] VITALS: BP 124/79; PULSE 81; RESP 16; TEMP 97.9
[2017-06-18 06:41] VITALS: O2SAT 97
== END 2017-06-18 06:44 | disposition home or self-care (01) ==
LOC: C.ER 22:45
DX: F10.20 Alcohol dependence, uncomplicated (principal); T14.8XXA Other injury of unspecified body region, initial encounter; X58.XXXA Exposure to other specified factors, initial encounter

== ENCOUNTER 2017-06-22 19:49 | Emergency (ER) | payer SELFPAY ==
--- NOTE | 2017-06-22 20:42 | C.PDOC ---
History Of Present Illness Patient presents to the ER requesting a place to spend the night. Denies physical complaints at this time. Time Seen by Provider: 06/22/17 20:41 Chief Complaint (Nursing): Substance Abuse History Per: Patient History/Exam Limitations: no limitations Onset/Duration Of Symptoms: Hrs Current Symptoms Are (Timing): Still Present Suicide/Self Injury Attempted (Context): None Modifying Factor(s): None Associated Symptoms: denies: Depression, Suicidal Thoughts, Suicidal Plan Involuntary Hold By: None Recent travel outside of the [place]: No Past Medical History Reviewed: Historical Data, Nursing Documentation, Vital Signs Vital Signs: Last Vital Signs Temp 97.2 F L 06/23/17 02:50 Pulse 68 06/23/17 02:50 Resp 18 06/23/17 02:50 BP 112/73 06/23/17 02:50 Pulse Ox 96 06/23/17 02:50 - Medical History PMH: No Chronic Diseases Family History: States: No Known Family Hx - Social History Hx Alcohol Use: Yes Hx Substance Use: No (unknown) - Immunization History Hx Tetanus Toxoid Vaccination: No Hx Influenza Vaccination: No Hx Pneumococcal Vaccination: No Review Of Systems Constitutional: Negative for: Fever, Chills Gastrointestinal: Negative for: Nausea, Vomiting, Diarrhea Physical Exam - Physical Exam Appears: Non-toxic, No Acute Distress Skin: Warm, Dry Head: Normacephalic Oral Mucosa: Moist Chest: Symmetrical, No Tenderness Cardiovascular: Rhythm Regular Respiratory: No Rales, No Rhonchi, No Wheezing Gastrointestinal/Abdominal: Soft, No Tenderness Neurological/Psych: Oriented x3 ED Course And Treatment O2 Sat by Pulse Oximetry: 95 (Room air) Pulse Ox Interpretation: Normal Reevaluation Time: 05:27 Reassessment Condition: Improved Disposition Counseled Patient/Family Regarding: Studies Performed, Diagnosis, Need For Followup - Disposition Referrals: [facility] [Outside] Disposition: HOME/ ROUTINE Disposition Time: 20:42 Condition: FAIR Instructions: Alcohol Intoxication (DC) Forms: [facility] (Mozambican) - Clinical Impression Clinical Impression: Alcohol intoxication - Scribe Statement The provider has reviewed the documentation as recorded by the Scribe Román Nolan All medical record entries made by the Scribe were at my direction and personally dictated by me. I have reviewed the chart and agree that the record accurately reflects my personal performance of the history, physical exam, medical decision making, and the department course for this patient. I have also personally directed, reviewed, and agree with the discharge instructions and disposition.
[2017-06-23 02:53] VITALS: PULSE 68
[2017-06-23 06:44] VITALS: BP 114/66; RESP 24; TEMP 96.2; O2SAT 96
== END 2017-06-23 06:36 | disposition home or self-care (01) ==
LOC: C.ER 19:49 → MERGE 19:49 → EDBD 19:49 → C.ER 06-23 06:36
DX: F10.129 Alcohol abuse with intoxication, unspecified (principal)

== ENCOUNTER 2017-08-24 16:47 | Emergency (ER) | payer SELFPAY ==
--- NOTE | 2017-08-24 20:10 | C.PDOC ---
History Of Present Illness 62 y/o male, intoxicated, presents to the ER complaining of a headache. Patient states that he feels hungry. Patient denies having any injuries, visual changes , nausea, and vomiting. Time Seen by Provider: 08/24/17 19:39 Chief Complaint (Nursing): Substance Abuse History Per: Patient History/Exam Limitations: no limitations Onset/Duration Of Symptoms: Hrs Current Symptoms Are (Timing): Still Present Severity: Moderate Past Medical History Reviewed: Historical Data, Nursing Documentation, Vital Signs Vital Signs: Last Vital Signs Temp 98.0 F 08/24/17 17:45 Pulse 90 08/24/17 17:45 Resp 16 08/24/17 17:45 BP 104/71 08/24/17 17:45 Pulse Ox 18 L 08/24/17 21:35 - Medical History PMH: Denies: HIV, HTN, Seizures, Sexually Transmitted Disease Surgical History: No Surg Hx - [facility] Procedures ALCOHOL DETOXIFICATION (07/29/13) Family History: States: No Known Family Hx - Social History Hx Tobacco Use: No Hx Alcohol Use: Yes (4 beers) Hx Substance Use: No - Immunization History Hx Tetanus Toxoid Vaccination: No Hx Influenza Vaccination: No Hx Pneumococcal Vaccination: No Review Of Systems Except As Marked, All Systems Reviewed And Found Negative. Constitutional: Negative for: Fever, Chills Gastrointestinal: Negative for: Nausea, Vomiting Neurological: Positive for: Headache Physical Exam - Physical Exam Appears: No Acute Distress, Other (intoxicated) Skin: Normal Color, Warm Head: Atraumatic, Normacephalic Eye(s): bilateral: Normal Inspection Nose: Normal Oral Mucosa: Moist Neck: Supple Chest: Symmetrical Cardiovascular: Rhythm Regular Respiratory: Normal Breath Sounds, No Accessory Muscle Use, No Rales, No Rhonchi , No Wheezing Extremity: Normal ROM Neurological/Psych: Oriented x3, No Normal Speech (slurred speech) ED Course And Treatment O2 Sat by Pulse Oximetry: 18 Pulse Ox Interpretation: Abnormal - CT Scan/US Head CT Other Rad Studies (CT/US): Read By Radiologist, Radiology Report Reviewed CT/US Interpretation: Accession No. : [id number]. Patient Name / ID : ZEFERINO FAN / [id number]. Exam Date : 08/24/2017 20:10:53 ( Approved ). Study Comment : Sex / Age : M / 62Y. Creator : ERIN THOMPSON. Dictator : Broadcast Engineer : Data Center Consultant : ERIN THOMPSON. Approver2 : Report Date : 2017 20:46:00. My Comment : . [facility] Division of Radiology. [address] [place] [address]. Tel. no. [phone]. . . Patient Name: MITA MCGARRY . Pt. Address: [address] [place] [address]. Rec #: [id number][place] [address]: Judith Singh MD. Pt Phone: Order Location: [facility] : 1955 Male Age : 62 Order #: [id number]. Reason for exam: ETOH abuse with headache. . . . . . CT Scan. . . HEAD W/O CONTRAST Exam Date: 08/24/17. . This imaging exam was performed at [facility]. EXAM: CT Head Without Intravenous Contrast. . EXAM DATE/TIME: Exam ordered 08/24/2017 7:45 PM. . CLINICAL HISTORY: 62 years old, male; Condition or disease; Headache; Additional info: ETOH. abuse with headache. . TECHNIQUE: Axial computed tomography images of the head/brain without intravenous. contrast. All CT scans at this facility use one or more dose reduction. techniques, viz.: automated exposure control; ma/kV adjustment per patient size. (including targeted exams where dose is matched to indication; i.e. head); or. iterative reconstruction technique. . COMPARISON: CT - HEAD W/O CONTRAST 2017-06-10 23:16. . FINDINGS: Brain: Low -density is noted within the periventricular white matter. extending into the moss radiata and the centrum semiovale bilaterally. A 6. mm low density focus is noted in the left lentiform nucleus unchanged from. previous. No hemorrhage. Ventricles: There is mild ventriculomegaly. Bones/joints: Unremarkable. No acute fracture. Soft tissues: Punctate hyperdensities are noted within the facial skin. Sinuses: Mucosal thickening is noted within the left ethmoid air cells. There is partial opacification of left mastoid air cells. Mucosal thickening. is noted in the roof of the left maxillary sinus. Mastoid air cells: See above. . IMPRESSION: 1. Chronic sinusitis involving the left ethmoid and maxillary sinus. Partial. opacification of left mastoid air cells suggests mastoiditis. . 2. Chronic microvascular ischemic change within the deep white matter. No. change. . 3. Lacunar infarct left basal ganglia. No change. . 4. Stable mild ventriculomegaly. . Dictated By: Erin Thompson MD. Dictated Date/Time: 08/24/172045. Signed By: Erin Thompson MD. Date Signed: 08/24/172045. Transcribed By: [facility]. Transcribe Date/Time: 08/24/172045. CONCEPCION/MANJU Reevaluation Time: 00:18 Reassessment Condition: Unchanged (patient sleeping quietly) Medical Decision Making Medical Decision Making: Plan: --CT-Head Disposition - Disposition Disposition Time: 00:18 Condition: STABLE Forms: [facility] (Turkmen) - Clinical Impression Clinical Impression: Alcohol intoxication - Scribe Statement The provider has reviewed the documentation as recorded by the Mya Salmeron Provider Attestation: All medical record entries made by the Johnibe were at my direction and personally dictated by me. I have reviewed the chart and agree that the record accurately reflects my personal performance of the history, physical exam, medical decision making, and the department course for this patient. I have also personally directed, reviewed, and agree with the discharge instructions and disposition. Physician Patient Turnover Patient Signed Over To: Sarah Crane Handoff Comments: pending sobriety
--- NOTE | 2017-08-24 20:47 | CT ---
EXAM: CT Head Without Intravenous Contrast EXAM DATE/TIME: Exam ordered 08/24/2017 7:45 PM CLINICAL HISTORY: 62 years old, male; Condition or disease; Headache; Additional info: ETOH abuse with headache TECHNIQUE: Axial computed tomography images of the head/brain without intravenous contrast. All CT scans at this facility use one or more dose reduction techniques, viz.: automated exposure control; ma/kV adjustment per patient size (including targeted exams where dose is matched to indication; i.e. head); or iterative reconstruction technique. COMPARISON: CT - HEAD W/O CONTRAST 2017-06-10 23:16 FINDINGS: Brain: Low-density is noted within the periventricular white matter extending into the moss radiata and the centrum semiovale bilaterally. A 6 mm low density focus is noted in the left lentiform nucleus unchanged from previous. No hemorrhage. Ventricles: There is mild ventriculomegaly. Bones/joints: Unremarkable. No acute fracture. Soft tissues: Punctate hyperdensities are noted within the facial skin. Sinuses: Mucosal thickening is noted within the left ethmoid air cells. There is partial opacification of left mastoid air cells. Mucosal thickening is noted in the roof of the left maxillary sinus. Mastoid air cells: See above. IMPRESSION: 1. Chronic sinusitis involving the left ethmoid and maxillary sinus. Partial opacification of left mastoid air cells suggests mastoiditis. 2. Chronic microvascular ischemic change within the deep white matter. No change. 3. Lacunar infarct left basal ganglia. No change. 4. Stable mild ventriculomegaly
[2017-08-25 02:16] VITALS: RESP 20; O2SAT 97
[2017-08-25 06:04] VITALS: BP 130/72; PULSE 90; TEMP 98.1
== END 2017-08-25 06:03 | disposition home or self-care (01) ==
LOC: C.ER 16:47
DX: F10.129 Alcohol abuse with intoxication, unspecified (principal)

== ENCOUNTER 2017-12-08 13:49 | Emergency (ER) | payer OTHER ==
[2017-12-08 14:05] VITALS: BMI 25.0
[2017-12-08 14:12] VITALS: BP 142/75; PULSE 102; RESP 18; TEMP 98.7; O2SAT 100
--- NOTE | 2017-12-08 14:52 | C.PDOC ---
History Of Present Illness 62 y/o male with a PMHx of alcohol abuse presents via ambulance after he was found sleeping in the street. Patient admits to drinking three 24 oz beers and an unknown amount of liquor. He also notes he tripped and fell, hitting his left knee. He cannot recall whether there was head trauma and notes he had a mild headache, which is now resolved. Currently his only complaint is left knee pain. Otherwise patient denies any nausea, vomiting, blurry vision, severe headache, neck pain, changes in sensation, focal weakness, or other injury. Time Seen by Provider: 12/08/17 13:56 Chief Complaint (Nursing): Substance Abuse History Per: Patient History/Exam Limitations: intoxication Onset/Duration Of Symptoms: Hrs Current Symptoms Are (Timing): Still Present Modifying Factor(s): Alcohol Additional History Per: EMS Past Medical History Reviewed: Historical Data, Nursing Documentation, Vital Signs Vital Signs: Last Vital Signs Temp 98.7 F 12/08/17 14:05 Pulse 102 H 12/08/17 14:05 Resp 18 12/08/17 14:05 BP 142/75 12/08/17 14:05 Pulse Ox 100 12/08/17 15:56 - Medical History PMH: Back Problems Denies: HIV, HTN, Seizures, Sexually Transmitted Disease Surgical History: No Surg Hx - [facility] Procedures ALCOHOL DETOXIFICATION (07/29/13) Family History: States: No Known Family Hx - Social History Hx Tobacco Use: No Hx Alcohol Use: Yes (4 beers) Hx Substance Use: No - Immunization History Hx Tetanus Toxoid Vaccination: No Hx Influenza Vaccination: No Hx Pneumococcal Vaccination: No Review Of Systems Except As Marked, All Systems Reviewed And Found Negative. Musculoskeletal: Positive for: Other (left knee pain) Psych: Positive for: Other (ETOH intoxication) Physical Exam - Physical Exam Appears: No Acute Distress, Unkempt, Other (foul-smelling, +AOB) Skin: Normal Color, Warm, Dry Head: Atraumatic, Normacephalic (with no ecchymosis, abrasions, or other evidence of trauma) Eye(s): bilateral: Normal Inspection, PERRL, EOMI Ear(s): Bilateral: Normal Nose: Normal Oral Mucosa: Moist Neck: Normal ROM, No Midline Cervical Tenderness, No Paracervical Tenderness, Supple Chest: Symmetrical Cardiovascular: Rhythm Regular, No Murmur Respiratory: Normal Breath Sounds, No Rales, No Rhonchi, No Wheezing Gastrointestinal/Abdominal: Soft, No Tenderness, No Distention Back: Normal Inspection, No Vertebral Tenderness Extremity: Normal ROM (with FROM of the left knee, able to fully flex and extend ), No Tenderness, Capillary Refill (< 2 sec), No Deformity, No Swelling (or ecchymosis to the knee) Pulses: Left Dorsalis Pedis: Normal, Right Dorsalis Pedis: Normal Neurological/Psych: Normal Speech, Normal Motor, Normal Sensation, Other (No focal deficits; Alert, Awake, responsive to verbal stimuli) ED Course And Treatment O2 Sat by Pulse Oximetry: 100 (RA) Pulse Ox Interpretation: Normal - Other Rad X-ray left knee X-Ray: Viewed By Me, Read By Radiologist Interpretation: Accession No. : [id number]. Patient Name / ID : ZEFERINO FAN / [id number]. Exam Date : 12/08/2017 14:17:17 ( Approved ). Study Comment : Sex / Age : M / 62Y. Creator : Ange Giraldo. Dictator : Ange Giraldo. Development Intern : Agricultural Real Estate Agent : Ange Michelle. Approver2 : Report Date : 12/08/2017 15:04:03. My Comment : . PROCEDURE: Left Knee Radiographs. HISTORY: Pain. COMPARISON : None. FINDINGS: BONES: No fracture. Anterior tibial tuberosity cortical hyperostoses. Anterior patellar cortical hyperostoses - blending quadriceps inserting enthesophyte formation and likely some blending patellar tendon enthesophyte formation. JOINTS: Mild osteoarthritis. JOINT EFFUSION: None. OTHER FINDINGS: The infrapatellar most superficial soft tissues appear thickened -correlate clinically. Patellar Wilder status suggested. IMPRESSION: No fracture. Other findings -as above. - CT Scan/US CT Head Other Rad Studies (CT/US): Read By Radiologist, Radiology Report Reviewed CT/US Interpretation: Accession No. : [id number]. Patient Name / ID : ZEFERINO FAN / [id number]. Exam Date : 12/08/2017 14:43:01 ( Approved ). Study Comment : Sex / Age : M / 62Y. Creator : Geo Alegria MD. Dictator : Geo Alegria MD. Development Intern : Agricultural Real Estate Agent : Geo Alegria MD. Approver2 : Report Date : 12/08/2017 15:24:49. My Comment : . PROCEDURE: CT HEAD WITHOUT CONTRAST. HISTORY: s/p fall. COMPARISON: Noncontrast head CT 08/24/2017. TECHNIQUE: Axial computed tomography images were obtained through the head/brain without intravenous contrast. Radiation dose: Total exam DLP = 1078.78 mGy-cm. This CT exam was performed using one or more of the following dose reduction techniques: Automated exposure control, adjustment of the mA and/or kV according to patient size, and/or use of iterative reconstruction technique. FINDINGS: HEMORRHAGE: No interval intracranial hemorrhage. BRAIN: Diffuse cerebral atrophy and chronic microangiopathy are reiterated. No interval mass effect is identified or suspicious extra-axial fluid collection in the midline brain and appears diffusely unremarkable nevertheless. Posterior fossa contents remain unremarkable including the brainstem. VENTRICLES: Unremarkable. No hydrocephalus. CALVARIUM: No destructive bony lesion or displaced fracture identified including through the skullbase. PARANASAL SINUSES: Unremarkable as visualized. No significant inflammatory changes. MASTOID AIR CELLS: Unremarkable as visualized. No inflammatory changes. OTHER FINDINGS: None. IMPRESSION: Stable age related neuro degenerative findings are appreciated which are not significantly changed in the interval. No interval intracranial hemorrhage or fracture identified. Medical Decision Making Medical Decision Making: Initial Impression: ETOH Intoxication, Fall Time: 14:16 Initial Plan: --Accucheck --Left Knee X-Ray --CT Head w/o contrast Patient resting comfortably, improved. Ambulating with cane with steady gait. Will discharge patient home to follow up with medical clinic in 2 days. Disposition Counseled Patient/Family Regarding: Studies Performed, Diagnosis, Need For Followup - Disposition Referrals: [facility] [Outside] Disposition: HOME/ ROUTINE Disposition Time: 15:48 Condition: STABLE Additional Instructions: follow up with medical clinic in 2 days call to make an appointment decrease alcohol use return to ER if symptoms worsens or progress Instructions: Contusion (DC), Alcohol Abuse and Alcoholism (DC) Forms: [employer] (Slovenian), General Discharge Instructions - Clinical Impression Clinical Impression: Contusion, Alcohol abuse - Scribe Statement The provider has reviewed the documentation as recorded by the Scribe (Lucía Pelletier) Provider Attestation: All medical record entries made by the Scribe were at my direction and personally dictated by me. I have reviewed the chart and agree that the record accurately reflects my personal performance of the history, physical exam, medical decision making, and the department course for this patient. I have also personally directed, reviewed, and agree with the discharge instructions and disposition.
--- NOTE | 2017-12-08 15:05 | RAD ---
PROCEDURE: Left Knee Radiographs. HISTORY: Pain. COMPARISON: None. FINDINGS: BONES: No fracture. Anterior tibial tuberosity cortical hyperostoses. Anterior patellar cortical hyperostoses - blending quadriceps inserting enthesophyte formation and likely some blending patellar tendon enthesophyte formation JOINTS: Mild osteoarthritis. JOINT EFFUSION: None. OTHER FINDINGS: The infrapatellar most superficial soft tissues appear thickened -correlate clinically. Patellar Emilia status suggested IMPRESSION: No fracture. Other findings -as above.
--- NOTE | 2017-12-08 15:26 | CT ---
PROCEDURE: CT HEAD WITHOUT CONTRAST. HISTORY: s/p fall COMPARISON: Noncontrast head CT 08/24/2017. TECHNIQUE: Axial computed tomography images were obtained through the head/brain without intravenous contrast. Radiation dose: Total exam DLP = 1078.78 mGy-cm. This CT exam was performed using one or more of the following dose reduction techniques: Automated exposure control, adjustment of the mA and/or kV according to patient size, and/or use of iterative reconstruction technique. FINDINGS: HEMORRHAGE: No interval intracranial hemorrhage. BRAIN: Diffuse cerebral atrophy and chronic microangiopathy are reiterated. No interval mass effect is identified or suspicious extra-axial fluid collection in the midline brain and appears diffusely unremarkable nevertheless. Posterior fossa contents remain unremarkable including the brainstem. VENTRICLES: Unremarkable. No hydrocephalus. CALVARIUM: No destructive bony lesion or displaced fracture identified including through the skullbase. PARANASAL SINUSES: Unremarkable as visualized. No significant inflammatory changes. MASTOID AIR CELLS: Unremarkable as visualized. No inflammatory changes. OTHER FINDINGS: None. IMPRESSION: Stable age related neuro degenerative findings are appreciated which are not significantly changed in the interval. No interval intracranial hemorrhage or fracture identified.
== END 2017-12-08 16:00 | disposition home or self-care (01) ==
LOC: C.ER 13:49
DX: S80.02XA Contusion of left knee, initial encounter (principal); W01.0XXA Fall on same level from slipping, tripping and stumbling without subsequent striking against object, initial encounter; F10.10 Alcohol abuse, uncomplicated; Y90.9 Presence of alcohol in blood, level not specified

== ENCOUNTER 2018-03-30 19:53 | Emergency (ER) | payer SELFPAY ==
[2018-03-30 19:54] VITALS: BMI 25.0
--- NOTE | 2018-03-30 20:03 | C.PDOC ---
History Of Present Illness 62 year old male local homeless alcoholic presents to the ER via EMS for public intoxication. Denies any new injuries or complaints. Time Seen by Provider: 03/30/18 19:59 Chief Complaint (Nursing): Substance Abuse History Per: Patient, EMS History/Exam Limitations: no limitations Onset/Duration Of Symptoms: Hrs Current Symptoms Are (Timing): Still Present Suicide/Self Injury Attempted (Context): None Modifying Factor(s): Alcohol Associated Symptoms: denies: Depression, Suicidal Thoughts Involuntary Hold By: None Recent travel outside of the [place]: No Past Medical History Reviewed: Historical Data, Nursing Documentation, Vital Signs - Medical History PMH: Back Problems Denies: HIV, HTN, Seizures, Sexually Transmitted Disease - [facility] Procedures ALCOHOL DETOXIFICATION (07/29/13) Family History: States: Unknown Family Hx - Social History Hx Tobacco Use: No Hx Alcohol Use: Yes (4 beers) Hx Substance Use: No - Immunization History Hx Tetanus Toxoid Vaccination: No Hx Influenza Vaccination: No Hx Pneumococcal Vaccination: No Review Of Systems Constitutional: Negative for: Fever, Chills Cardiovascular: Negative for: Chest Pain, Palpitations Respiratory: Negative for: Cough, Shortness of Breath Gastrointestinal: Negative for: Nausea, Vomiting Neurological: Negative for: Weakness, Numbness Physical Exam - Physical Exam Appears: Non-toxic, Other (ETOH on breath, disheveled, foul smelling) Skin: Normal Color, Warm, Dry Head: Atraumatic, Normacephalic Eye(s): bilateral: Normal Inspection Oral Mucosa: Moist Chest: Symmetrical, No Tenderness Cardiovascular: Rhythm Regular Respiratory: Normal Breath Sounds, No Rales, No Rhonchi, No Wheezing Gastrointestinal/Abdominal: Soft, No Tenderness Extremity: Normal ROM (x4) Neurological/Psych: Oriented x3, Normal Speech Gait: Steady Medical Decision Making Medical Decision Making: typical alcohol abuse no acute issues no injuries awake, aware, coherent Disposition Doctor Will See Patient In The: Office Counseled Patient/Family Regarding: Studies Performed, Diagnosis - Disposition Referrals: [facility]ics Anonymous [Outside] [facility] [Outside] [facility] [Outside] [facility] [Outside] [facility] [Outside] [facility] [Outside] Disposition: HOME/ ROUTINE Disposition Time: 20:03 Condition: GOOD Additional Instructions: seek nightly senior living placement seek AA Seek outpatient psych resources Instructions: Alcohol Abuse and Alcoholism (DC) Forms: [employer] (Sierra Leonean) - Clinical Impression Clinical Impression: Alcohol abuse - Scribe Statement The provider has reviewed the documentation as recorded by the Scribe Román Nolan All medical record entries made by the Scribe were at my direction and personally dictated by me. I have reviewed the chart and agree that the record accurately reflects my personal performance of the history, physical exam, medical decision making, and the department course for this patient. I have also personally directed, reviewed, and agree with the discharge instructions and disposition.
[2018-03-30 20:08] VITALS: BP 120/76; PULSE 76; RESP 14; TEMP 97.4; O2SAT 97
== END 2018-03-30 20:10 | disposition home or self-care (01) ==
LOC: C.ER 19:53
DX: F10.10 Alcohol abuse, uncomplicated (principal); Y90.9 Presence of alcohol in blood, level not specified

== ENCOUNTER 2018-07-29 21:15 | Emergency (ER) | payer SELFPAY ==
[2018-07-29 21:15] VITALS: BMI 25.0
[2018-07-29 21:33] VITALS: RESP 16
--- NOTE | 2018-07-30 00:18 | C.PDOC ---
History Of Present Illness 62 year old male is brought to the ED by EMS for c/o bilateral leg pain and swelling for 2 weeks. Patient admits to drinking alcohol today. Patient denies fever, chills, nausea, vomit, diarrhea, CP, SOB, palpitations, weakness, numbness. Time Seen by Provider: 07/29/18 21:37 Chief Complaint (Nursing): Lower Extremity Problem/Injury History Per: Patient, EMS History/Exam Limitations: intoxication Onset/Duration Of Symptoms: Days Current Symptoms Are (Timing): Still Present Recent travel outside of the [place]: No Additional History Per: Patient, EMS Past Medical History Reviewed: Historical Data, Nursing Documentation, Vital Signs Vital Signs: Last Vital Signs Temp 97.7 F 07/29/18 21:30 Pulse 87 07/29/18 21:30 Resp 16 07/29/18 21:30 BP 120/69 07/29/18 21:30 Pulse Ox 96 07/29/18 21:30 - Medical History PMH: Back Problems Denies: HIV, HTN, Seizures, Sexually Transmitted Disease Surgical History: No Surg Hx - [facility] Procedures ALCOHOL DETOXIFICATION (07/29/13) Family History: States: Unknown Family Hx - Social History Hx Tobacco Use: No Hx Alcohol Use: Yes (4 beers) Hx Substance Use: No - Immunization History Hx Tetanus Toxoid Vaccination: No Hx Influenza Vaccination: No Hx Pneumococcal Vaccination: No Review Of Systems Constitutional: Negative for: Fever, Chills Cardiovascular: Negative for: Chest Pain, Palpitations Respiratory: Negative for: Shortness of Breath Gastrointestinal: Negative for: Nausea, Vomiting, Abdominal Pain Musculoskeletal: Positive for: Leg Pain Skin: Negative for: Rash Neurological: Negative for: Weakness, Numbness Psych: Negative for: Depression, Suicidal ideation Physical Exam - Physical Exam Appears: Non-toxic, No Acute Distress, Other (AOB) Skin: Normal Color, Warm, Dry Head: Atraumatic, Normacephalic Eye(s): bilateral: Normal Inspection Neck: Normal ROM, Supple Chest: Symmetrical Cardiovascular: Rhythm Regular Respiratory: Normal Breath Sounds, No Rales, No Rhonchi, No Wheezing Gastrointestinal/Abdominal: Soft, No Tenderness, No Guarding, No Rebound Extremity: Bilateral: Atraumatic, Normal Color And Temperature, Normal ROM Neurological/Psych: Oriented x3, Normal Speech, Normal Cognition Gait: Steady ED Course And Treatment O2 Sat by Pulse Oximetry: 96 (ON RA) Pulse Ox Interpretation: Normal Disposition - Disposition Referrals: [facility] [Outside] [facility] [Outside] Disposition: HOME/ ROUTINE Disposition Time: 22:30 Condition: IMPROVED Additional Instructions: The emergency medical care you received today was directed at your acute symptoms. If you were prescribed any medication, please fill it and take as directed. It may take several days for your symptoms to resolve. Return to the Emergency Department if your symptoms worsen, do not improve, or if you have any other problems. Please contact your doctor or call one of the physicians/clinics you have been referred to that are listed on the Patient Visit Information form that is included in your discharge packet. Bring any paperwork you were given at discharge with you along with any medications you are taking to your follow up visit. Our treatment cannot replace ongoing medical care by a primary care provider outside of the emergency department. Thank you for allowing the [facility] team to be part of your care today. Follow up with the clinic next week for re-evaluation and further management. Instructions: Alcohol Use - When Is Drinking a Problem? Forms: [employer] (Wallisian) - Clinical Impression Clinical Impression: Alcohol abuse - Scribe Statement The provider has reviewed the documentation as recorded by the Scribe Brad Hall All medical record entries made by the Scribe were at my direction and personally dictated by me. I have reviewed the chart and agree that the record accurately reflects my personal performance of the history, physical exam, medical decision making, and the department course for this patient. I have also personally directed, reviewed, and agree with the discharge instructions and disposition.
[2018-07-30 04:48] VITALS: BP 118/82; PULSE 74; TEMP 97.9
[2018-07-30 05:39] VITALS: O2SAT 96
== END 2018-07-30 06:22 | disposition home or self-care (01) ==
LOC: C.ER 21:15
DX: F10.10 Alcohol abuse, uncomplicated (principal)

== ENCOUNTER 2018-08-18 23:01 | Emergency (ER) | payer SELFPAY ==
[2018-08-18 23:02] VITALS: BMI 25.0
[2018-08-18 23:15] VITALS: BP 157/98; PULSE 94; RESP 16; TEMP 97.6; O2SAT 97
--- NOTE | 2018-08-18 23:22 | C.PDOC ---
Time Seen by Provider: 08/18/18 23:20 Chief Complaint (Nursing): Substance Abuse Past Medical History Vital Signs: Last Vital Signs Temp 97.6 F 08/18/18 23:11 Pulse 94 H 08/18/18 23:11 Resp 16 08/18/18 23:11 BP 157/98 H 08/18/18 23:11 Pulse Ox 97 08/18/18 23:11 - Medical History PMH: Back Problems Denies: HIV, HTN, Seizures, Sexually Transmitted Disease - [facility] Procedures ALCOHOL DETOXIFICATION (07/29/13) Family History: States: Unknown Family Hx - Social History Hx Tobacco Use: No Hx Alcohol Use: Yes (4 beers) Hx Substance Use: No - Immunization History Hx Tetanus Toxoid Vaccination: No Hx Influenza Vaccination: No Hx Pneumococcal Vaccination: No ED Course And Treatment O2 Sat by Pulse Oximetry: 97 Medical Decision Making Medical Decision Making: alcohol abuse stable gate hand abrasions from fall no head injuries ok for d/c. Disposition Doctor Will See Patient In The: Office Counseled Patient/Family Regarding: Studies Performed, Diagnosis - Disposition Disposition: HOME/ ROUTINE Disposition Time: 23:22 Condition: GOOD - Clinical Impression Clinical Impression: Alcohol abuse
== END 2018-08-18 23:56 | disposition home or self-care (01) ==
LOC: C.ER 23:01
DX: F10.10 Alcohol abuse, uncomplicated (principal)

== ENCOUNTER 2018-08-26 20:09 | Emergency (ER) | payer SELFPAY ==
[2018-08-26 20:10] VITALS: BMI 25.0
--- NOTE | 2018-08-26 20:21 | C.PDOC ---
History Of Present Illness 63 year old male is brought to the ED by EMS for evaluation of witnessed fall. Patient is a chronic alcoholic and homeless. Patient reports his struck the left side of his face today. Patient denies LOC, visual changes, nausea, vomit, other injuries. Time Seen by Provider: 08/26/18 20:12 History Per: Patient, EMS History/Exam Limitations: intoxication Onset/Duration Of Symptoms: Hrs Current Symptoms Are (Timing): Still Present Suicide/Self Injury Attempted (Context): None Modifying Factor(s): Alcohol Associated Symptoms: denies: Depression, Suicidal Thoughts, Suicidal Plan Recent travel outside of the [place]: No Additional History Per: Patient Past Medical History Reviewed: Historical Data, Nursing Documentation, Vital Signs - Medical History PMH: Back Problems Denies: HIV, HTN, Seizures, Sexually Transmitted Disease Surgical History: No Surg Hx - [facility] Procedures ALCOHOL DETOXIFICATION (07/29/13) Family History: States: Unknown Family Hx - Social History Hx Tobacco Use: No Hx Alcohol Use: Yes (4 beers) Hx Substance Use: No - Immunization History Hx Tetanus Toxoid Vaccination: No Hx Influenza Vaccination: No Hx Pneumococcal Vaccination: No Review Of Systems Constitutional: Negative for: Fever, Chills Eyes: Negative for: Vision Change Respiratory: Negative for: Cough, Shortness of Breath Gastrointestinal: Negative for: Nausea, Vomiting, Abdominal Pain Skin: Positive for: Other (abrasion) Neurological: Negative for: Weakness, Numbness, Headache, Dizziness Physical Exam - Physical Exam Appears: Non-toxic, No Acute Distress, Other (intoxicated) Skin: Normal Color, Warm, Dry Head: Normacephalic, No Swelling, Abrasion (minor lateral left eyebrow, no swelling) Eye(s): bilateral: Normal Inspection, PERRL, EOMI Neck: Normal ROM, No Midline Cervical Tenderness, Supple Chest: Symmetrical Cardiovascular: Rhythm Regular Respiratory: Normal Breath Sounds, No Rales, No Rhonchi, No Wheezing Gastrointestinal/Abdominal: Soft, No Tenderness, No Guarding, No Rebound Back: No Vertebral Tenderness Extremity: Normal ROM, No Tenderness, No Swelling Neurological/Psych: Oriented x3, Normal Speech, Normal Cognition, Normal Motor, Normal Sensation, Other (intoxciated, non focal) Gait: Steady ED Course And Treatment O2 Sat by Pulse Oximetry: 100 (ON RA) Pulse Ox Interpretation: Normal - CT Scan/US CT head Other Rad Studies (CT/US): Read By Radiologist, Radiology Report Reviewed CT/US Interpretation: CLINICAL HISTORY: Trauma, substance abuse. TECHNIQUE: Multiple axial brain CT scan sections were obtained from base to vertex without contrast administration. COMMENTS: The study shows normal configuration of sella turcica. There are no intra or extra-axial collections. There is no mass effect or midline shift. There is no evidence of hematoma formation. No hydrocephalus is present. No abnormal calcifications are noted. Changes of di ffuse cerebellar and cerebral atrophy are noted with symmetrically dilated ventricles and cortical sulci. There are mild bilateral periventricular hypolucencies compatible with white matter ischemic disease. No significant other abnormalities are seen either in the posterior fossa or supratentorial compartment. There is mucosal thickening and partial opacification involving bilateral ethmoid air cells and maxillary sinuses consistent with chronic sinusitis. 1 cm mucoid retention cyst versus polyp is noted within the left maxillary sinus. IMPRESSION: 1. Diffuse age-appropriate cerebellar and cerebral atrophy. 2. Bilateral periventricular hypolucencies compatible with chronic white matter ischemic disease. 3. Sinusitis as above. 4. No evidence of acute intracranial pathology. Thank you for your kind referral of this patient. . Electronically signed on Aug 26, 2018 9:20:33 PM EST by: Geo Harmon M.D., GENNY Certified By ABR & CBCCT. Fellowship Trained MRI and CT Specialist Medical Decision Making Medical Decision Making: Plan: * CT head Disposition Counseled Patient/Family Regarding: Studies Performed, Diagnosis, Need For Followup - Disposition Referrals: [facility] [Outside] [facility] [Outside] Disposition: HOME/ ROUTINE Condition: IMPROVED Instructions: Alcohol Abuse and Alcoholism (DC), Minor Head Injury (DC) Forms: [employer] (Czech) - Clinical Impression Clinical Impression: Abrasion of eyebrow, Alcohol abuse, Minor head injury - Scribe Statement The provider has reviewed the documentation as recorded by the Scribe Brad Hall All medical record entries made by the Scribe were at my direction and personally dictated by me. I have reviewed the chart and agree that the record accurately reflects my personal performance of the history, physical exam, medical decision making, and the department course for this patient. I have also personally directed, reviewed, and agree with the discharge instructions and disposition.
[2018-08-26 21:22] VITALS: O2SAT 100
[2018-08-26 23:41] VITALS: BP 122/76; PULSE 99; RESP 18; TEMP 98.7
--- NOTE | 2018-08-27 10:28 | CT ---
Date of service: 08/26/2018 PROCEDURE: CT HEAD WITHOUT CONTRAST. HISTORY: TRAUMA COMPARISON: Comparison made with prior CT scan brain 12/08/2017. TECHNIQUE: Axial computed tomography images were obtained through the head/brain without intravenous contrast. Radiation dose: Total exam DLP = 958.3 mGy-cm. This CT exam was performed using one or more of the following dose reduction techniques: Automated exposure control, adjustment of the mA and/or kV according to patient size, and/or use of iterative reconstruction technique. FINDINGS: HEMORRHAGE: No acute parenchymal, subarachnoid or extra-axial hemorrhage. BRAIN: Moderate-significant diffuse and confluent chronic periventricular white matter ischemic changes seen extending peripherally into the deep white matter both cerebral hemispheres. Significant central volume loss. VENTRICLES: No obstructive hydrocephalus. CALVARIUM: Unremarkable. PARANASAL SINUSES: Frontal sinuses are hypoplastic.. There is mild mucosal thickening both maxillary antra left greater than right.. There is also mild mucosal thickening noted within the ethmoid air complex more so on the left side. MASTOID AIR CELLS: Unremarkable as visualized. No inflammatory changes. OTHER FINDINGS: Changes of bilateral cataract surgery. IMPRESSION: No acute intracranial hemorrhage. Moderate to significant chronic white matter ischemic changes with significant central volume loss.
== END 2018-08-26 23:40 | disposition home or self-care (01) ==
LOC: C.ER 20:09
DX: S00.212A Abrasion of left eyelid and periocular area, initial encounter (principal); W18.30XA Fall on same level, unspecified, initial encounter; F10.10 Alcohol abuse, uncomplicated; Y90.9 Presence of alcohol in blood, level not specified

== ENCOUNTER 2018-11-24 20:50 | Emergency (ER) | payer SELFPAY ==
[2018-11-24 20:50] VITALS: BMI 25.0
[2018-11-24 21:00] VITALS: BP 124/76; PULSE 120; TEMP 98.7; O2SAT 96
--- NOTE | 2018-11-24 22:40 | C.PDOC ---
History Of Present Illness 63 y/o male presents to ED for alcohol intoxication. Reports drinking 2 bottles of gin. Patient is homeless. Denies SI/HI. Denies any other complaints at this time. Time Seen by Provider: 11/24/18 21:24 Chief Complaint (Nursing): Substance Abuse History Per: Patient History/Exam Limitations: no limitations Onset/Duration Of Symptoms: Hrs Current Symptoms Are (Timing): Still Present Past Medical History Reviewed: Historical Data, Nursing Documentation, Vital Signs Vital Signs: Last Vital Signs Temp 98.7 F 11/24/18 20:59 Pulse 120 H 11/24/18 20:59 Resp BP 124/76 11/24/18 20:59 Pulse Ox 96 11/24/18 20:59 Primary Care Provider: FAMILY PROVIDER,NO - Medical History PMH: Back Problems Denies: HIV, HTN, Seizures, Sexually Transmitted Disease - [facility] Procedures ALCOHOL DETOXIFICATION (07/29/13) Family History: States: No Known Family Hx - Social History Hx Tobacco Use: No Hx Alcohol Use: Yes (4 beers) Hx Substance Use: No - Immunization History Hx Tetanus Toxoid Vaccination: No Hx Influenza Vaccination: No Hx Pneumococcal Vaccination: No Review Of Systems Except As Marked, All Systems Reviewed And Found Negative. Constitutional: Negative for: Fever, Chills Psych: Positive for: Other (alcohol intoxication). Negative for: Suicidal ideation Physical Exam - Physical Exam Appears: Non-toxic, No Acute Distress Skin: Warm, Dry Head: Normacephalic Eye(s): bilateral: Normal Inspection Oral Mucosa: Moist, Other (alcohol on breath) Neck: Supple Cardiovascular: Rhythm Regular, No Murmur Respiratory: Normal Breath Sounds, No Rales, No Rhonchi, No Wheezing Gastrointestinal/Abdominal: Soft, No Tenderness Extremity: Bilateral: Atraumatic, Normal Color And Temperature Neurological/Psych: Oriented x3 ED Course And Treatment O2 Sat by Pulse Oximetry: 96 (RA) Pulse Ox Interpretation: Normal Medical Decision Making Medical Decision Making: Plan: well known to er. upon ed assessemtn pt awake alert in nad. staedy gait stable for dc. no medical complaint. Disposition - Disposition Disposition: HOME/ ROUTINE Disposition Time: 23:14 Condition: STABLE Forms: [facility] [employer] (Slovak) - Clinical Impression Clinical Impression: Alcohol abuse - Scribe Statement The provider has reviewed the documentation as recorded by the Mya Argueta Provider Attestation: All medical record entries made by the Mya were at my direction and personally dictated by me. I have reviewed the chart and agree that the record accurately reflects my personal performance of the history, physical exam, medical decision making, and the department course for this patient. I have also personally directed, reviewed, and agree with the discharge instructions and disposition.
== END 2018-11-24 22:54 | disposition home or self-care (01) ==
LOC: C.ER 20:50
DX: F10.10 Alcohol abuse, uncomplicated (principal); Y90.9 Presence of alcohol in blood, level not specified; Z59.0 Homelessness